=== PATIENT | male | born 1960 | race Caucasian/White ===

== ENCOUNTER 2021-03-24 20:58 | Inpatient (IN) ==
[2021-03-24] MEDS ORDERED: IOPAMIDOL 100 ML BOTTLE IV ONE (20:59)
[2021-03-24] MEDS ORDERED: cefTRIAXone 1 GM VIAL IV ONE (22:05)
[2021-03-24] MEDS ORDERED: IPRATROPIUM/ALBUTEROL 3 ML AMPUL.NEB NEB ONE (22:05)
[2021-03-24] MEDS ORDERED: methylPREDNISolone SOD SUCC 125 MG/2 ML VIAL IV ONE (22:05)
--- NOTE | 2021-03-24 22:11 | Emergency Department Note ---
SOB HPI General Chief Complaint: Shortness of Breath/Dyspnea Stated Complaint: shortness of breath Time Seen by Provider: 03/24/21 21:56 Source: EMS Mode of arrival: EMS Limitations: no limitations History of Present Illness HPI Narrative: Narrative: The patient presents to room T5 via EMS for evaluation of shortness of breath. Patient reports that he has had underlying COPD for several years. He does currently take oxygen at 3 L by nasal cannula. Over the last 3 weeks he has had progressive shortness of breath with intermittent fevers and shaking chills. He states 4 to 5 days ago he was seen in the clinic and started on antibiotics. He reports now that he is having worsening pain on the right lateral aspect of his chest which inhibits his ability to breathe. He also reports shortness of breath with cough. He denies any lower extremity swelling or calf pain. He denies any nausea or vomiting. No lightheadedness or dizziness. Related Data Allergies Allergy/AdvReac Type Severity Reaction Status Date / Time bupropion [From Wellbutrin] AdvReac Severe Irritable Verified 03/24/21 21:08 codeine AdvReac Severe Vomiting Verified 03/24/21 21:08 Penicillins AdvReac Intermediate Rash Verified 03/24/21 21:08 Review of Systems ROS ROS Narrative: Narrative: All systems ED: reviewed and negative except as stated. [facility] Narrative Patient History Narrative: Narrative: Medical/Surgical/Family History All Active Problems (Updated 03/25/21 @ 01:07 by Twin Wiggins MD) Acute exacerbation of chronic obstructive airways disease (Acute) Bilateral pneumonia (Acute) Hypoxia (Acute) Social History Smoking Status: Smokeless tobacco Exam Narrative Narrative: Narrative: General Limitations: no limitations General appearance: Present alert and in no apparent distress Head Head: Present atraumatic, normocephalic and normal inspection Eye Eye: Present normal appearance and EOMI; Absent conjunctival injection ENT ENT: Present normal exam and mucous membranes moist Neck Neck: Present normal inspection and trachea midline Chest Chest: Present tenderness (Tenderness to palpation on the lateral aspect of the right chest along the anterior axillary line.) Respiratory Respiratory: Present normal lung sounds bilaterally, rales/crackles and wheezes; Absent respiratory distress Cardiovascular Cardiovascular: Present regular rate, normal rhythm and normal heart sounds Adbominal Abdominal: Present soft; Absent distention, tenderness, guarding and rebound Extremities Extremities: Present normal inspection; Absent tenderness Back Back: Present normal inspection; Absent tenderness Neurological Neurological: Present alert, oriented X3 and CN II-XII intact; Absent motor sensory deficit Psychiatric Psychiatric: Present normal affect and normal mood Skin Skin: Present warm (WNL) and dry; Absent rash Course Vital Signs Vital signs: Vital Signs Pulse Rate 81 03/24/21 21:18 Blood Pressure 131/88 03/24/21 21:18 Pulse Oximetry (%) 91 03/24/21 21:18 Pulse Rate 78 03/25/21 00:13 Respiratory Rate 29 H 03/24/21 23:52 Blood Pressure 104/67 03/24/21 23:00 Pulse Oximetry (%) 92 03/25/21 00:32 [facility] MDM Narrative Medical decision making narrative: Narrative: Patient presents for evaluation of right-sided chest discomfort suggestive of pleuritic pain. The patient has been recently treated for pneumonia as an outpatient however is having increased oxygen requirement and worsening discomfort. The patient does have a leuk ocytosis. Electrolytes are otherwise unremarkable. Lactic acid level is normal. CT scan of the chest does show extensive bilateral pneumonia. The patient did receive IV antibiotics after blood cultures. The patient also received DuoNeb treatment and Solu-Medrol. The patient is having increased oxygen requirement and is a failure of outpatient treatment. I discussed the case with the hospitalist. We will be admitting to the medical floor. Lab Data Lab results reviewed: Yes I reviewed the patient's lab results. Result diagrams: 03/24/21 22:38 03/24/21 22:37 Labs: Lab Results 03/24/21 03/24/21 03/24/21 Range/Units 22:37 22:38 22:38 WBC 13.1 H (4.5-11.0) K/mcL RBC 4.30 L (4.50-5.90) M/mcL Hgb 12.5 L (13.5-16.5) g/dL Hct 36.9 L (41.0-55.0) % POC Hct 37 L (41-55) % MCV 85.8 (80.0-100.0) fL MCH 29.1 (26.0-34.0) pg MCHC 33.9 (31.0-36.0) g/dL RDW 13.8 (11.5-14.5) % Plt Count 246 (140-440) K/mcL MPV 9.8 (7.4-10.4) fL Neut % (Auto) 83.5 H (38.0-78.0) % Lymph % (Auto) 6.1 L (15.0-49.0) % [place] % (Auto) 10.2 (1.0-12.0) % Eos % (Auto) 0 (0.0-7.0) % Baso % (Auto) 0.2 (0.0-2.0) % Lymph # (Auto) 0.80 L (1.50-4.80) K/mcL [place] # (Auto) 1.34 H (0.10-0.90) K/mcL Eos # (Auto) 0 (0.00-0.70) K/mcL Baso # (Auto) 0.03 (0.00-0.20) K/mcL Absolute Neutrophils 10.93 H (1.80-8.00) K/mcL VBG Lactic Acid 1.0 (0.5-2.0) mmol/L POC Sodium 136 (133-145) mEq/L Sodium 134 (133-145) mmol/L POC Potassium 3.4 (3.3-5.1) mEql/L Potassium 3.6 (3.3-5.1) mmol/L POC Chloride 101 (96-108) mEq/L Chloride 99 (96-108) mmol/L Carbon Dioxide 21 L (22-30) mmol/L POC Total CO2 22 (22-30) mmol/L Anion Gap 14.0 (8.0-16.0) POC BUN 16 (6-20) mg/dL BUN 16 (6-20) mg/dL Creatinine 0.8 (0.7-1.2) mg/dL POC Creatinine 0.7 (0.6-1.2) mg/dL GFR Calculation 97 Glucose 103 (70-105) mg/dL POC Glucose 109 H (70-105) mg/dL Calcium 8.7 (8.6-10.4) mg/dL POC WB Ioniz Calcium 1.08 L (1.16-1.32) mmEq/L Total Bilirubin 0.5 (0.1-1.0) mg/dL AST 159 H (<40) U/L ALT 97 H (<40) U/L Alkaline Phosphatase 104 (39-117) U/L Troponin T (<0.03) ng/mL Total Protein 6.7 (5.9-8.4) gm/dL Albumin 3.0 L (3.2-5.2) gm/dL Globulin 3.7 (2.2-3.7) gm/dL Albumin/Globulin Ratio 0.8 L (1.0-2.3) 03/24/21 Range/Units 22:38 WBC (4.5-11.0) K/mcL RBC (4.50-5.90) M/mcL Hgb (13.5-16.5) g/dL Hct (41.0-55.0) % POC Hct (41-55) % MCV (80.0-100.0) fL MCH (26.0-34.0) pg MCHC (31.0-36.0) g/dL RDW (11.5-14.5) % Plt Count (140-440) K/mcL MPV (7.4-10.4) fL Neut % (Auto) (38.0-78.0) % Lymph % (Auto) (15.0-49.0) % [place] % (Auto) (1.0-12.0) % Eos % (Auto) (0.0-7.0) % Baso % (Auto) (0.0-2.0) % Lymph # (Auto) (1.50-4.80) K/mcL [place] # (Auto) (0.10-0.90) K/mcL Eos # (Auto) (0.00-0.70) K/mcL Baso # (Auto) (0.00-0.20) K/mcL Absolute Neutrophils (1.80-8.00) K/mcL VBG Lactic Acid (0.5-2.0) mmol/L POC Sodium (133-145) mEq/L Sodium (133-145) mmol/L POC Potassium (3.3-5.1) mEql/L Potassium (3.3-5.1) mmol/L POC Chloride (96-108) mEq/L Chloride (96-108) mmol/L Carbon Dioxide (22-30) mmol/L POC Total CO2 (22-30) mmol/L Anion Gap (8.0-16.0) POC BUN (6-20) mg/dL BUN (6-20) mg/dL Creatinine (0.7-1.2) mg/dL POC Creatinine (0.6-1.2) mg/dL GFR Calculation Glucose (70-105) mg/dL POC Glucose (70-105) mg/dL Calcium (8.6-10.4) mg/dL POC WB Ioniz Calcium (1.16-1.32) mmEq/L Total Bilirubin (0.1-1.0) mg/dL AST (<40) U/L ALT (<40) U/L Alkaline Phosphatase (39-117) U/L Troponin T < 0.01 (<0.03) ng/mL Total Protein (5.9-8.4) gm/dL Albumin (3.2-5.2) gm/dL Globulin (2.2-3.7) gm/dL Albumin/Globulin Ratio (1.0-2.3) Radiology Data Radiology results reviewed: Yes I reviewed the patient's radiology results. EKG Data EKG #1: EKG attestation: Yes I reviewed and interpreted this EKG., Yes There are no EKG findings of acute coronary syndrome and Yes This EKG will be read by hydraulic miner blasting EKG results narrative: Normal sinus rhythm, rate 80, normal ST segment, no ectopy, normal QRS Rhythm Strip Data Rhythm Strip Rate: 82 Interpretation: Normal sinus rhythm Pulse Oximetry Data Pulse Ox %: 92 Interpretation: 3 L, hypoxia corrected CC TIME Critical Care Time Critical Care Time: Yes Total Critical Care Time: 30 Attestation: Approximately 30 minutes of critical care time was used in order to assess and manage the high probability of imminent or life threatening deterioration which required my highest level of preparedness and interventions with frequent patient assessments. This time is excluding time spent on separately billable procedures. Discharge Plan Patient/Caregiver Discharge Instructions Pt seen by SENIOR SQL DEVELOPER/PA only: No Clinical Impression: Acute exacerbation of chronic obstructive airways disease, Bilateral pneumonia, Hypoxia Patient Disposition: Xfer As Inpt ([facility]) Condition: Undetermined Follow up with: Abby Cole ARNP [Primary Care Provider] -
[2021-03-24 22:48] LABS: POC Blood Urea Nitrogen 16 mg/dL (6-20); POC CO2 22 mmol/L (22-30); POC Calcium, Ionized 1.08 mmEq/L (1.16-1.32); POC Chloride 101 mEq/L (96-108); POC Creatinine 0.7 mg/dL (0.6-1.2); POC Glucose, Random 109 mg/dL (70-105); POC Hematocrit 37 % (41-55); POC Potassium 3.4 mEql/L (3.3-5.1); POC Sodium 136 mEq/L (133-145)
[2021-03-24 23:37] LABS: Basophils # (Auto) 0.03 K/mcL (0.00-0.20); Basophils % (Auto) 0.2 % (0.0-2.0); Eosinophils # (Auto) 0 K/mcL (0.00-0.70); Eosinophils % (Auto) 0 % (0.0-7.0); Hematocrit 36.9 % (41.0-55.0); Hemoglobin 12.5 g/dL (13.5-16.5); Lymphocytes % (Auto) 6.1 % (15.0-49.0); Mean Cell Volume 85.8 fL (80.0-100.0); Mean Corpuscular HGB Conc 33.9 g/dL (31.0-36.0); Mean Platelet Volume 9.8 fL (7.4-10.4); Monocytes # (Auto) 1.34 K/mcL (0.10-0.90); Monocytes % (Auto) 10.2 % (1.0-12.0); Neutrophils % (Auto) 83.5 % (38.0-78.0); Platelet Count 246 K/mcL (140-440); Red Cell Distribution Width 13.8 % (11.5-14.5); WBC 13.1 K/mcL (4.5-11.0)
[2021-03-24 23:54] LABS: ALT/SGPT 97 U/L (<40); AST/SGOT 159 U/L (<40); Albumin/Globulin Ratio 0.8 (1.0-2.3); Alkaline Phosphatase 104 U/L (39-117); Bilirubin,Total 0.5 mg/dL (0.1-1.0); Blood Urea Nitrogen 16 mg/dL (6-20); Calcium 8.7 mg/dL (8.6-10.4); Carbon Dioxide 21 mmol/L (22-30); Chloride 99 mmol/L (96-108); Globulin 3.7 gm/dL (2.2-3.7); Glomerular Filtration Rate 97; Glucose 103 mg/dL (70-105)
[2021-03-25] MEDS ORDERED: VANCOMYCIN 1,500 MG in 0.9 % SODIUM CHLORIDE 500 ML IV ONE (00:17)
[2021-03-25] MEDS ORDERED: PIPERACILLIN SODIUM/TAZOBACTAM 4.5 GM in DEXTROSE 5% IN WATER 50 ML IV ONE (00:17)
[2021-03-25] MEDS ORDERED: HYDROmorphone 1 MG/ML SYRINGE IV ONE ×2 (00:21→00:22)
[2021-03-25] MEDS ORDERED: IPRATROPIUM/ALBUTEROL 3 ML AMPUL.NEB NEB ONE (00:33)
[2021-03-25] MEDS ORDERED: IPRATROPIUM/ALBUTEROL 3 ML AMPUL.NEB NEB PRN ×3 (02:19→08:06)
[2021-03-25] MEDS ORDERED: ACETAMINOPHEN 325 MG TABLET PO PRN ×3 (02:20→08:10)
[2021-03-25] MEDS ORDERED: 0.9 % SODIUM CHLORIDE 1,000 ML IV SCH (02:30)
[2021-03-25] MEDS ORDERED: morphine 2 MG/ML VIAL IV PRN ×4 (04:07→08:06)
[2021-03-25] MEDS ORDERED: morphine 2 MG/ML VIAL ONE (04:14)
--- NOTE | 2021-03-25 05:48 | Cat Scan Report ---
INDICATION: chest pain, pna COMPARISON: Chest x-ray dated 03/12/2021 performed at an outside institution. TECHNIQUE: Axial images obtained through the chest. 60ml Isovue 370 injected intravenously, and scanning was performed during pulmonary arterial phase. Sagittally and coronally reformatted images were obtained. MIP reformatted images. FINDINGS: Examination was initially interpreted by [facility] Lungs:Bilateral pulmonary parenchymal infiltrates, right worse than left. These infiltrates are peripherally based. There is consolidation in the posterior segment of the right upper lobe as well as the posterior basilar segment of the right lower lobe. Findings are nonspecific but are consistent with pneumonia. Severe covid pneumonia could have this appearance Mediastinum, vascular:Main pulmonary artery, right pulmonary artery, left pulmonary artery are negative. No intraluminal filling defects. No lobar, segmental, or subsegmental abnormalities. Ascending thoracic aorta and aortic arch are negative. There is a prominent filling defect within the descending thoracic aorta. This measures approximately 17 x 14 x 11 mm. This abuts the posterior wall. Appearance is consistent with focal thrombus. Medical management may be necessary. Thoracic aorta is otherwise negative. No dissection. There is prominent right hilar adenopathy. This is probably reactive and physiologic. Mild mediastinal adenopathy is nonspecific. Heart:No cardiomegaly. No pericardial effusion. Pleura:No significant pleural effusion. No pleural mass or calcification Axilla, supraclavicular regions, chest wall:No pathologic axillary or supraclavicular adenopathy. Musculoskeletal:Negative thoracic spine. No compression fracture. No lytic lesion. No rib or sternal lesions Upper Abdomen:There is a small hiatal hernia. Upper abdomen is otherwise negative IMPRESSION: 1. Negative pulmonary CTA 2. Extensive infiltrate consistent with multilobar pneumonia, right and left. 3. Right hilar adenopathy 4. Prominent intraluminal filling defect within the descending thoracic aorta. Appearance is consistent with a polypoid thrombus adherent to the posterior wall of the descending thoracic aorta. Dimensions are given above 5. Small hiatal hernia The exam was performed using radiation dose optimization techniques including, but not limited to, automated exposure control, adjustment of the mA and/or kV according to patient size and use of iterative reconstruction technique. Interpreted and Authenticated by: Riley Self 03/25/21
[2021-03-25] MEDS ORDERED: HYDROcodone/APAP 10/325MG TABLET PO PRN (08:00)
[2021-03-25] MEDS ORDERED: guaiFENesin/DEXTROMETHORPHAN ORAL SOL PO PRN ×2 (08:02→08:06)
[2021-03-25] MEDS ORDERED: ONDANSETRON 4 MG/2 ML VIAL IV PRN (08:04)
[2021-03-25] MEDS ORDERED: CYCLOBENZAPRINE 10 MG TABLET PO PRN (08:06)
[2021-03-25] MEDS ORDERED: IBUPROFEN 600 MG TABLET PO PRN (08:06)
[2021-03-25] MEDS ORDERED: DEXTROSE 50% 50 ML VIAL IV PRN (08:13)
[2021-03-25] MEDS ORDERED: DEXTROSE 31 GM ORAL.SUSP PO PRN (08:13)
--- NOTE | 2021-03-25 08:26 | Internal Med History&Physical ---
HPI History of Present Illness Patient information: Note initiated : 03/25/21 at 8:14 am Service Date, if different from initiated Date: [] Patient: Travis Seo 60 y/o M admitted on 03/25/21 for shortness of breath. Chief Complaint: [shortness of breath] History of present illness: Mr. Seo is a 60 year old M history of COPD, dependent on home oxygen therapy, insulin-dependent type 2 diabetes mellitus, osteoarthritis of the left hip, presenting with 3-week history of gradual onset, gradually worsening shortness of breath. Patient denies any recent travel or sick contact. There is no prior similar episode. Over the past week, he has gradual onset, gradually worsening shortness of breath. He also has nonproductive cough and denies any sputum productions. He denies any respiratory wheezings. He also is coming a fever of up to 103. Denies any chills or sweating. About a week ago he presented to his doctor because of the symptoms mentioned and he was prescribed some antibiotics which he does not recall the name. He came back to our ED last night due to recurrence of the symptoms and due to the fact that he has an acute onset right lower lateral sharp chest pain whenever he coughs. Vital signs within normal limits. Labs significant for leukocytosis with WBC 13.1. Serum lactic acid 1.0. Covid screening negative. CT angiogram shows absence of any pulmonary embolus and instead showing bilateral pneumonia. Constitutional Constitutional: Absent chills, excessive sweating, fatigue, fever(s) and weakness EENT Eyes: Absent blurry vision, change in vision, loss of vision and other visual disturbances Ears: Absent decreased hearing and tinnitus Nose, mouth and throat: Absent abnormal hearing, dry mouth, headache(s), nasal congestion and sore throat Cardiovascular Cardiovascular: Absent chest pain, chest pain at rest, edema, irregular heart rhythm and palpatations Respiratory Respiratory: Present cough; Absent dyspnea and wheezing Additional comments: shortness of breath Gastrointestinal Gastrointestinal: Absent abdominal pain, constipation, diarrhea, nausea and vomiting Musculoskeletal Musculoskeletal: Absent back pain, deformity, limited range of motion, muscle cramps, muscle weakness and numbness Additional comments: right lower lateral chest pain Integumentary Integumentary: Absent lesions, rash and wounds Neurological Neurological: Absent focal weakness, headache(s) and numbness Psychiatric Psychiatric: Absent anxiety, depression and hallucinations PFSH PFSH All Active Problems (Updated 03/25/21 @ 08:20 by Gerson Guzman MD) On home oxygen therapy (Acute) Anemia, normocytic normochromic (Acute) T2DM (type 2 diabetes mellitus) (Acute) Acute and chronic respiratory failure (Acute) COPD (chronic obstructive pulmonary disease) (Acute) Acute exacerbation of chronic obstructive airways disease (Acute) Bilateral pneumonia (Acute) Hypoxia (Acute) MEDS/ALLERGIES Home Medications and Allergies Home Medications Medication Instructions Recorded Confirmed Type albuterol sulfate [ProAir HFA] 2 inh INHALATION PRN PRN 03/25/21 03/25/21 History atorvastatin 40 mg PO QHS 03/25/21 03/25/21 History carbamazepine 400 mg PO QHS 03/25/21 03/25/21 History carbamazepine 600 mg PO QAM 03/25/21 03/25/21 History hydrocodone-acetaminophen 1 - 2 tab PO Q4H PRN 03/25/21 03/25/21 History levofloxacin 750 mg PO DAILY 03/25/21 03/25/21 History metformin 500 mg PO BID 03/25/21 03/25/21 History tiotropium-olodaterol [Stiolto 1 puff INHALATION DAILY PRN 03/25/21 03/25/21 History Respimat] umeclidinium-vilanterol [Anoro 1 inh INHALATION QDAY PRN 03/25/21 03/25/21 History Ellipta] zolpidem [Ambien] 10 mg PO QHS 03/25/21 03/25/21 History Allergies Allergy/AdvReac Type Severity Reaction Status Date / Time Penicillins Allergy Mild Rash Verified 03/25/21 06:36 bupropion [From Wellbutrin] AdvReac Mild Irritable Verified 03/25/21 06:36 codeine AdvReac Mild Vomiting Verified 03/25/21 06:36 EXAM Constitutional Vitals: Temp Pulse Resp BP Pulse Ox 36.7 C 80 36 H 122/74 92 03/25/21 02:54 03/25/21 02:54 03/25/21 02:54 03/25/21 02:54 03/25/21 03:15 General appearance: cooperative and no acute distress Head Head exam: Present atraumatic and normocephalic Eye Eye exam: Present EOMI and PERRL ENT ENT exam: Present mucous membranes moist, normal exam and normal external ear exam Additional comments: Nasal cannula Neck Neck exam: Present normal inspection; Absent lymphadenopathy, tenderness and thyromegaly Respiratory Respiratory exam: Absent accessory muscle use, respiratory distress and wheezes Additional comments: Right lung base respiratory crackles Cardiovascular Cardiovascular exam: Present normal rate and rhythm; Absent JVD GI/Abdominal GI/Abdominal exam: Present normal bowel sounds and soft; Absent organomegaly and tenderness Rectal Rectal exam: Present deferred Extremities Exam Extremities exam: Present full ROM, normal capillary refill and normal inspection; Absent tenderness Neurological Exam Neurological exam: Present alert, CN II-XII intact and oriented X3; Absent motor sensory deficit Psychiatric Psychiatric exam: Present normal affect and normal mood; Absent anxious and depressed Skin Skin exam: Present dry and intact DATA Data Completed and Pending Labs: Labs from last 24 hours 03/24/21 03/24/21 03/24/21 22:38 22:38 22:38 WBC 13.1 H RBC 4.30 L Hgb 12.5 L Hct 36.9 L POC Hct MCV 85.8 MCH 29.1 MCHC 33.9 RDW 13.8 Plt Count 246 MPV 9.8 Neut % (Auto) 83.5 H Lymph % (Auto) 6.1 L [place] % (Auto) 10.2 Eos % (Auto) 0 Baso % (Auto) 0.2 Lymph # (Auto) 0.80 L [place] # (Auto) 1.34 H Eos # (Auto) 0 Baso # (Auto) 0.03 Absolute Neutrophils 10.93 H VBG Lactic Acid 1.0 POC Sodium Sodium POC Potassium Potassium POC Chloride Chloride Carbon Dioxide POC Total CO2 Anion Gap POC BUN BUN Creatinine POC Creatinine GFR Calculation Glucose POC Glucose Calcium POC WB Ioniz Calcium Total Bilirubin AST ALT Alkaline Phosphatase Troponin T < 0.01 Total Protein Albumin Globulin Albumin/Globulin Ratio 03/24/21 22:37 WBC RBC Hgb Hct POC Hct 37 L MCV MCH MCHC RDW Plt Count MPV Neut % (Auto) Lymph % (Auto) [place] % (Auto) Eos % (Auto) Baso % (Auto) Lymph # (Auto) [place] # (Auto) Eos # (Auto) Baso # (Auto) Absolute Neutrophils VBG Lactic Acid POC Sodium 136 Sodium 134 POC Potassium 3.4 Potassium 3.6 POC Chloride 101 Chloride 99 Carbon Dioxide 21 L POC Total CO2 22 Anion Gap 14.0 POC BUN 16 BUN 16 Creatinine 0.8 POC Creatinine 0.7 GFR Calculation 97 Glucose 103 POC Glucose 109 H Calcium 8.7 POC WB Ioniz Calcium 1.08 L Total Bilirubin 0.5 AST 159 H ALT 97 H Alkaline Phosphatase 104 Troponin T Total Protein 6.7 Albumin 3.0 L Globulin 3.7 Albumin/Globulin Ratio 0.8 L A/P Assessment and plan (1) Bilateral pneumonia: Status: Acute (2) COPD (chronic obstructive pulmonary disease): Status: Acute (3) Acute and chronic respiratory failure: Status: Acute (4) T2DM (type 2 diabetes mellitus): Status: Acute (5) Anemia, normocytic normochromic: Status: Acute (6) On home oxygen therapy: Status: Acute Narrative A/P Narrative: 1. Community acquire pneumonia: Admit to inpatient med surg Blood culture Sputum culture Rocephin Zithromax Supplemental oxygen titrate to achieve spo2 >92% Robitussin DM PRN cough Flexeril PRN muscle spasm Ibuprofen PRN mild pain [place] PRN moderate pain Morphine IV PRN severe pain Tylenol PRN fever cbc w/ auto diff in the morning to trend WBC 2. h/o COPD: Does not appear to be in exacerbation clinically DuoNEB NEB PRN wheezing or SOB Supplemental oxygen titrate to achieve spo2 >92% 3. T2DM: HgA1c Hold Metformin Tier 1 SSI AC HS Accu Chek AC HS Hypoglycemia protocol Diabetic diet 4. Anemia, normocytic normochromic: cbc w/ auto diff in the AM to trend H/H; transfuse pRBC if hemoglobin <7.0, active bleeding, or symptomatic GI ppx: not currently indicated DVT ppx: Lovenox Code status: DNI DNR Prognosis: guarded Disposition: inpatient med surg Time Spent With Patient Time: Total time spent is greater than 50% in coordination of care (as documented) at patient's floor/unit and/or counseling patient: Total time spent with greater than 50% in coordination of care (as documented) at patient's floor/unit and/or counseling patient:: 25 - 35 minutes QUALITY VTE Deep Vein Thrombosis/Pulmonary Embolism Present on Admission: No
[2021-03-25] MEDS ORDERED: carBAMazepine 200 MG TABLET PO SCH ×2 (09:00→21:00)
[2021-03-25] MEDS: 0.9 % SODIUM CHLORIDE 1,000 ML IV SCH ×3 (09:11→18:55)
[2021-03-25] MEDS: DOCUSATE SODIUM 100 MG CAPSULE PO SCH ×3 (09:22→20:40)
[2021-03-25] MEDS: carBAMazepine 200 MG TABLET PO SCH ×2 (09:23→20:40)
[2021-03-25] MEDS: ENOXAPARIN 30 MG/0.3 ML SYRINGE SQ SCH ×2 (09:23→09:27)
[2021-03-25] MEDS: AZITHROMYCIN 500 MG in DEXTROSE 5% IN WATER 250 ML IV SCH (09:24)
[2021-03-25] MEDS: cefTRIAXone 1 GM VIAL IV SCH (09:30)
[2021-03-25] MEDS: HYDROcodone/APAP 10/325MG TABLET PO PRN ×3 (09:38→19:36)
[2021-03-25] MEDS: INSULIN LISPRO 1 UNIT/0.01 ML UNIT SQ SCH ×3 (12:00→20:45)
[2021-03-25] MEDS: 0.9 % SODIUM CHLORIDE 10 ML SYRINGE IV SCH ×2 (13:53→20:46)
--- NOTE | 2021-03-25 16:09 | EKG ---
[facility] Test Date: 2021-03-24 Pat Name: Travis Seo Department: ED Room: Gender: Male Puffer Tender: : 1960 Requested By: Twin Wiggins Order Number: [id number] Reading MD: Javier Herrera M.D. Measurements Intervals [place] Rate: 80 P: 41 [place]: 204 QRS: 26 QRSD: 81 T: 63 QT: 365 QTc: 421 Interpretive Statements Sinus rhythm Borderline prolonged [place] interval Electronically Signed On 03-25-2021 16:08:47 PDT by Javier Herrera M.D. /[id number]/[id number]
[2021-03-25] MEDS: ATORVASTATIN 40 MG TABLET PO SCH (20:40)
[2021-03-25] MEDS: SENNOSIDES 1 TABLET PO SCH (20:42)
[2021-03-25] MEDS ORDERED: ATORVASTATIN 40 MG TABLET PO SCH (21:00)
[2021-03-25] MEDS: ZOLPIDEM 5 MG TABLET PO PRN (23:09)
[2021-03-26] MEDS: 0.9 % SODIUM CHLORIDE 10 ML SYRINGE IV SCH ×3 (04:05→20:46)
[2021-03-26] MEDS: 0.9 % SODIUM CHLORIDE 1,000 ML IV SCH ×2 (04:05→08:06)
[2021-03-26] MEDS: HYDROcodone/APAP 10/325MG TABLET PO PRN ×4 (05:04→20:45)
[2021-03-26 06:45] LABS: Basophils # (Auto) 0.05 K/mcL (0.00-0.20); Basophils % (Auto) 0.6 % (0.0-2.0); Eosinophils # (Auto) 0 K/mcL (0.00-0.70); Eosinophils % (Auto) 0 % (0.0-7.0); Hematocrit 35.9 % (41.0-55.0); Hemoglobin 11.6 g/dL (13.5-16.5); Lymphocytes # (Auto) 0.89 K/mcL (1.50-4.80); Lymphocytes % (Auto) 11.3 % (15.0-49.0); Mean Cell Volume 88.2 fL (80.0-100.0); Mean Corpuscular HGB Conc 32.3 g/dL (31.0-36.0); Monocytes # (Auto) 1.02 K/mcL (0.10-0.90); Monocytes % (Auto) 12.9 % (1.0-12.0); Neutrophils % (Auto) 75.2 % (38.0-78.0); Platelet Count 264 K/mcL (140-440); RBC 4.07 M/mcL (4.50-5.90); Red Cell Distribution Width 14.1 % (11.5-14.5); WBC 7.9 K/mcL (4.5-11.0)
[2021-03-26 07:11] LABS: ALT/SGPT 86 U/L (<40); AST/SGOT 120 U/L (<40); Alkaline Phosphatase 81 U/L (39-117); Bilirubin,Total 0.2 mg/dL (0.1-1.0); Blood Urea Nitrogen 12 mg/dL (6-20); Calcium 8.2 mg/dL (8.6-10.4); Carbon Dioxide 25 mmol/L (22-30); Chloride 105 mmol/L (96-108); Glomerular Filtration Rate 102; Glucose 89 mg/dL (70-105)
[2021-03-26] MEDS: INSULIN LISPRO 1 UNIT/0.01 ML UNIT SQ SCH ×4 (07:57→20:46)
[2021-03-26] MEDS: cefTRIAXone 1 GM VIAL IV SCH (07:57)
[2021-03-26] MEDS: ENOXAPARIN 30 MG/0.3 ML SYRINGE SQ SCH (07:57)
[2021-03-26] MEDS: carBAMazepine 200 MG TABLET PO SCH ×2 (07:58→20:45)
[2021-03-26] MEDS: AZITHROMYCIN 500 MG in DEXTROSE 5% IN WATER 250 ML IV SCH (07:58)
[2021-03-26] MEDS: DOCUSATE SODIUM 100 MG CAPSULE PO SCH ×2 (08:32→20:44)
--- NOTE | 2021-03-26 11:40 | Internal Med Progress Note ---
SUBJECTIVE Subjective Patient information: Note initiated : 03/26/21 at 11:38 am Service Date, if different from initiated Date: [] Patient: Travis Seo 60 y/o M admitted on 03/25/21 for shortness of breath. Chief Complaint: [shortness of breath] History of present illness: Mr. Seo is a 60 year old M history of COPD, dependent on home oxygen therapy, insulin-dependent type 2 diabetes mellitus, osteoarthritis of the left hip, presenting with 3-week history of gradual onset, gradually worsening shortness of breath. Patient denies any recent travel or sick contact. There is no prior similar episode. Over the past week, he has gradual onset, gradually worsening shortness of breath. He also has nonproductive cough and denies any sputum productions. He denies any respiratory wheezings. He also is coming a fever of up to 103. Denies any chills or sweating. About a week ago he presented to his doctor because of the symptoms mentioned and he was prescribed some antibiotics which he does not recall the name. He came back to our ED last night due to recurrence of the sy mptoms and due to the fact that he has an acute onset right lower lateral sharp chest pain whenever he coughs. Vital signs within normal limits. Labs significant for leukocytosis with WBC 13.1. Serum lactic acid 1.0. Covid screening negative. CT angiogram shows absence of any pulmonary embolus and instead showing bilateral pneumonia. 03/26: Afebrile. On 3L oxygen. Blood culture no growth to date. c/o shortness of breath. c/o productive cough with white sputum. c/o wheezing. c/o right sided c hest wall pain when taking a deep breath. c/o general body weakness. c/o subjective fever. c/o constipation. Constitutional Vitals: Vital Signs Temp Pulse Resp BP Pulse Ox 36.9 C 60 20 121/79 94 03/26/21 07:52 03/26/21 07:52 03/26/21 07:52 03/26/21 07:52 03/26/21 08:00 Period Temp Pulse Resp BP Sys/Smith Pulse Ox Last 24 Hr 36.1 C-36.9 C 55-70 20-24 95-126/54-79 91-97 Intake and Output 03/25/21 03/26/21 03/26/21 21:59 05:59 13:59 Intake Total 2500 1600 1050 Output Total 875 2725 200 Balance 1625 -1125 850 Weight 92.76 kg Intake & Output: Intake & Output 03/25/21 03/26/21 03/26/21 21:59 05:59 13:59 Intake Total 2500 1600 1050 Output Total 875 2725 200 Balance 1625 -1125 850 Weight 92.76 kg Intake: IV 1000 250 Sodium Chloride 0.9% 1,000 ml @ 1000 125 mls/hr IV .Q8H [facility]ON[facility] Rx#: [id number] Zithromax 500 mg In Dextrose 5% 250 in Water 250 ml @ 250 mls/hr IV Q24H [facility] Rx#:[id number] Oral 2500 600 800 Output: Void Amount 875 2725 200 Other: Urine Appearance Clear Urine Color Bright Yellow General appearance: cooperative and no acute distress Head Head exam: Present atraumatic and normocephalic Eye Eye exam: Present EOMI and PERRL ENT ENT exam: Present mucous membranes moist, normal exam and normal external ear exam Additional comments: Nasal cannula in place Neck Neck exam: Present normal inspection; Absent lymphadenopathy, tenderness and thyromegaly Respiratory Respiratory exam: Absent accessory muscle use, respiratory distress and wheezes Additional comments: Respiratory crackles best heard in bilateral lung bases Cardiovascular Cardiovascular exam: Present normal rate and rhythm; Absent JVD GI/Abdominal GI/Abdominal exam: Present normal bowel sounds and soft; Absent organomegaly and tenderness Rectal Rectal exam: Present deferred Extremities Exam Extremities exam: Present full ROM, normal capillary refill and normal inspection; Absent tenderness Neurological Exam Neurological exam: Present alert, CN II-XII intact and oriented X3; Absent motor sensory deficit Psychiatric Psychiatric exam: Present normal affect and normal mood; Absent anxious and depressed Skin Skin exam: Present dry and intact OBJ DATA Labs CBC & Chem 7: 03/26/21 05:19 03/26/21 05:19 Labs: Abnormal Lab Results 03/26/21 03/26/21 03/24/21 05:19 05:19 22:38 WBC 13.1 H RBC 4.07 L 4.30 L Hgb 11.6 L 12.5 L Hct 35.9 L 36.9 L POC Hct Neut % (Auto) 83.5 H Lymph % (Auto) 11.3 L 6.1 L [place] % (Auto) 12.9 H Lymph # (Auto) 0.89 L 0.80 L [place] # (Auto) 1.02 H 1.34 H Absolute Neutrophils 10.93 H Carbon Dioxide Anion Gap 7.0 L POC Glucose Calcium 8.2 L POC WB Ioniz Calcium AST 120 H ALT 86 H Albumin 3.0 L Albumin/Globulin Ratio 03/24/21 22:37 WBC RBC Hgb Hct POC Hct 37 L Neut % (Auto) Lymph % (Auto) [place] % (Auto) Lymph # (Auto) [place] # (Auto) Absolute Neutrophils Carbon Dioxide 21 L Anion Gap POC Glucose 109 H Calcium POC WB Ioniz Calcium 1.08 L AST 159 H ALT 97 H Albumin 3.0 L Albumin/Globulin Ratio 0.8 L Meds: Medications Acetaminophen (Acetaminophen 325 Mg Tablet) 650 mg PO Q6HP PRN; Protocol PRN Reason: Per Pain Protocol Acetaminophen (Acetaminophen 325 Mg Tablet) 650 mg PO Q6HP PRN; Protocol PRN Reason: Per Pain Protocol/Fever > 101 Hydrocodone Bitart/Acetaminophen (Hydrocodone/Apap 10/325mg Tablet) 1 - 2 tab PO Q4H PRN; Protocol PRN Reason: Pain Last Admin: 03/26/21 05:04 Dose: 1 tab Documented by: Albuterol/Ipratropium (Ipratropium/Albuterol 3 Ml Ampul.Neb) 3 ml NEB Q4HP PRN PRN Reason: Shortness Of Breath Atorvastatin Calcium (Atorvastatin 40 Mg Tablet) 40 mg PO QHS [facility] Last Admin: 03/25/21 20:40 Dose: 40 mg Documented by: Carbamazepine (Carbamazepine 200 Mg Tablet) 400 mg PO QHS [facility] Last Admin: 03/25/21 20:40 Dose: 400 mg Documented by: Carbamazepine (Carbamazepine 200 Mg Tablet) 600 mg PO QAM [facility] Last Admin: 03/26/21 07:58 Dose: 600 mg Documented by: Ceftriaxone Sodium (Ceftriaxone 1 Gm Vial) 1 gm IV Q24H [facility]; Protocol Last Admin: 03/26/21 07:57 Dose: 1 gm Documented by: Cyclobenzaprine HCl (Cyclobenzaprine 10 Mg Tablet) 10 mg PO TID PRN PRN Reason: Muscle Spasm Dextrose (Dextrose 50% 50 Ml Vial) 0 ml IV UD PRN PRN Reason: Hypoglycemia Diagnostic Test (Pha) (Accu-Chek 1 Each Strip) 1 each FS ACHS [facility] Last Admin: 03/26/21 07:57 Dose: 1 each Documented by: Docusate Sodium (Docusate Sodium 100 Mg Capsule) 100 mg PO BID [facility] Last Admin: 03/26/21 08:32 Dose: 100 mg Documented by: Enoxaparin Sodium (Enoxaparin 30 Mg/0.3 Ml Syringe) 30 mg SQ DAILY [facility] Last Admin: 03/26/21 07:57 Dose: Not Given Documented by: Glucose (Dextrose 31 Gm Oral.Susp) 15 gm PO PRN PRN PRN Reason: Hypoglycemia Guaifenesin (Guaifenesin/Dextromethorphan Oral [place]isa) 10 ml PO Q4HP PRN PRN Reason: Cough Sodium Chloride (Sodium Chloride 0.9%) 1,000 mls @ 125 mls/hr IV .Q8H [facility] Last Admin: 03/26/21 08:06 Dose: Not Given Documented by: Azithromycin 500 mg/ Dextrose 250 mls @ 250 mls/hr IV Q24H [facility]; Protocol Stop: 03/27/21 09:59 Last Infusion: 03/26/21 08:52 Dose: Infused Documented by: Ibuprofen (Ibuprofen 600 Mg Tablet) 600 mg PO QIDP PRN; Protocol PRN Reason: PAIN/FEVER > 101 Insulin Human Lispro (Insulin Lispro 1 Unit/0.01 Ml Unit) 0 unit SQ [facility]; Protocol Last Admin: 03/26/21 07:57 Dose: Not Given Documented by: Morphine Sulfate (Morphine 2 Mg/Ml Vial) 2 mg IV Q4HP PRN; Protocol PRN Reason: Per Pain Protocol Last Admin: 03/26/21 08:04 Dose: 2 mg Documented by: Ondansetron HCl (Ondansetron 4 Mg/2 Ml Vial) 4 mg IV Q6HP PRN PRN Reason: Nausea And Vomiting Senna (Sennosides 1 Tablet) 2 tab PO HS [facility] Last Admin: 03/25/21 20:42 Dose: Not Given Documented by: Sodium Chloride (0.9 % Sodium Chloride 10 Ml Syringe) 10 ml IV Q8 [facility] Last Admin: 03/26/21 04:05 Dose: Not Given Documented by: Zolpidem Tartrate (Zolpidem 5 Mg Tablet) 5 mg PO HSP PRN PRN Reason: Insomnia Last Admin: 03/25/21 23:09 Dose: 5 mg Documented by: A/P Assessment and plan (1) Bilateral pneumonia: Status: Acute (2) COPD (chronic obstructive pulmonary disease): Status: Acute (3) Acute and chronic respiratory failure: Status: Acute (4) T2DM (type 2 diabetes mellitus): Status: Acute (5) Anemia, normocytic normochromic: Status: Acute (6) On home oxygen therapy: Status: Acute Narrative A/P Narrative: 1. Community acquire pneumonia: Stays in inpatient med surg Blood culture, no growth to date Sputum culture, no growth to date Rocephin Zithromax Supplemental oxygen titrate to achieve spo2 >92% Robitussin DM PRN cough Flexeril PRN muscle spasm Ibuprofen PRN mild pain [place] PRN moderate pain Morphine IV PRN severe pain Tylenol PRN fever cbc w/ auto diff in the morning to trend WBC 2. h/o COPD: Does not appear to be in exacerbation clinically DuoNEB NEB PRN wheezing or SOB Supplemental oxygen titrate to achieve spo2 >92% 3. T2DM: HgA1c Hold Metformin Tier 1 SSI AC HS Accu Chek AC HS Hypoglycemia protocol Diabetic diet 4. Anemia, normocytic normochromic: cbc w/ auto diff in the AM to trend H/H; transfuse pRBC if hemoglobin <7.0, active bleeding, or symptomatic GI ppx: not currently indicated DVT ppx: Lovenox Code status: DNI DNR Prognosis: stable Disposition: inpatient med surg Time Spent With Patient Time: Total time spent is greater than 50% in coordination of care (as documented) at patient's floor/unit and/or counseling patient: QUALITY VTE Deep Vein Thrombosis/Pulmonary Embolism Present on Admission: No
[2021-03-26] MEDS: POLYETHYLENE GLYCOL 3350 17 GM PACKET PO PRN (18:50)
[2021-03-26] MEDS: SENNOSIDES 1 TABLET PO SCH (20:45)
[2021-03-26] MEDS: ATORVASTATIN 40 MG TABLET PO SCH (20:45)
[2021-03-26] MEDS: ZOLPIDEM 5 MG TABLET PO PRN (22:54)
[2021-03-27] MEDS: HYDROcodone/APAP 10/325MG TABLET PO PRN ×5 (00:15→16:54)
[2021-03-27] MEDS: 0.9 % SODIUM CHLORIDE 10 ML SYRINGE IV SCH ×3 (03:46→14:52)
[2021-03-27 07:34] LABS: Basophils # (Auto) 0.04 K/mcL (0.00-0.20); Basophils % (Auto) 0.6 % (0.0-2.0); Eosinophils # (Auto) 0.21 K/mcL (0.00-0.70); Eosinophils % (Auto) 3.1 % (0.0-7.0); Hematocrit 32.8 % (41.0-55.0); Hemoglobin 10.9 g/dL (13.5-16.5); Lymphocytes % (Auto) 14.6 % (15.0-49.0); Mean Cell Volume 86.5 fL (80.0-100.0); Mean Corpuscular HGB Conc 33.2 g/dL (31.0-36.0); Mean Platelet Volume 9.8 fL (7.4-10.4); Monocytes # (Auto) 0.95 K/mcL (0.10-0.90); Monocytes % (Auto) 13.8 % (1.0-12.0); Neutrophils % (Auto) 67.9 % (38.0-78.0); Platelet Count 274 K/mcL (140-440); RBC 3.79 M/mcL (4.50-5.90); Red Cell Distribution Width 13.9 % (11.5-14.5); WBC 6.9 K/mcL (4.5-11.0)
[2021-03-27] MEDS: INSULIN LISPRO 1 UNIT/0.01 ML UNIT SQ SCH ×3 (07:55→17:09)
[2021-03-27 08:10] LABS: ALT/SGPT 65 U/L (<40); AST/SGOT 81 U/L (<40); Albumin/Globulin Ratio 1.1 (1.0-2.3); Alkaline Phosphatase 78 U/L (39-117); Bilirubin,Total 0.2 mg/dL (0.1-1.0); Blood Urea Nitrogen 10 mg/dL (6-20); Calcium 8.2 mg/dL (8.6-10.4); Carbon Dioxide 27 mmol/L (22-30); Chloride 107 mmol/L (96-108); Globulin 2.7 gm/dL (2.2-3.7); Glomerular Filtration Rate 109; Glucose 84 mg/dL (70-105)
[2021-03-27] MEDS: DOCUSATE SODIUM 100 MG CAPSULE PO SCH (09:10)
[2021-03-27] MEDS: carBAMazepine 200 MG TABLET PO SCH (09:11)
[2021-03-27] MEDS: cefTRIAXone 1 GM VIAL IV SCH (09:14)
[2021-03-27] MEDS: AZITHROMYCIN 500 MG in DEXTROSE 5% IN WATER 250 ML IV SCH (09:19)
[2021-03-27] MEDS: POLYETHYLENE GLYCOL 3350 17 GM PACKET PO PRN (09:27)
[2021-03-27] MEDS: ENOXAPARIN 30 MG/0.3 ML SYRINGE SQ SCH (09:29)
[2021-03-27] MEDS ORDERED: BISACODYL 10 MG SUPP.RECT PR ONE (10:30)
--- NOTE | 2021-03-27 10:56 | Discharge Summary ---
Discharge Provider Provider Patient information: Note initiated : 03/27/21 at 10:52 am Service Date, if different from initiated Date: [] Patient: Travis Seo 60 y/o M admitted on 03/25/21 for shortness of breath. Chief Complaint: [shortness of breath] History of present illness: Mr. Seo is a 60 year old M history of COPD, dependent on home oxygen therapy, insulin-dependent type 2 diabetes mellitus, osteoarthritis of the left hip, presenting with 3-week history of gradual onset, gradually worsening shortness of breath. Patient denies any recent travel or sick contact. There is no prior similar episode. Over the past week, he has gradual onset, gradually worsening shortness of breath. He also has nonproductive cough and denies any sputum productions. He denies any respiratory wheezings. He also is coming a fever of up to 103. Denies any chills or sweating. About a week ago he presented to his doctor because of the symptoms mentioned and he was prescribed some antibiotics which he does not recall the name. He came back to our ED last night due to recurrence of the symptoms and due to the fact that he has an acute onset right lower lateral sharp chest pain whenever he coughs. Vital signs within normal limits. Labs significant for leukocytosis with WBC 13.1. Serum lactic acid 1.0. Covid screening negative. CT angiogram shows absence of any pulmonary embolus and instead showing bilateral pneumonia. 03/26: Afebrile. On 3L oxygen. Blood culture no growth to date. c/o shortness of breath. c/o productive cough with white sputum. c/o wheezing. c/o right sided chest wall pain when taking a deep breath. c/o general body weakness. c/o subjective fever. c/o constipation. Date of admission: 03/25/21 02:46 Discharge date: 03/27/21 Primary care physician: Abby Cole Consults: 03/25/21 Consult to Physician [CONS] Stat Comment: Consulting Provider: Gerson Guzman Reason For Exam: Physician to Consult Discharge Meds Discharge Medications Home Medications Anoro Ellipta 1 inh INHALATION QDAY PRN 03/25/21 [History Confirmed 03/25/21 Last Taken 03/24/21 09:00] Stiolto Respimat 1 puff INHALATION DAILY PRN 03/25/21 [History Confirmed 03/25/21 Last Taken Unknown] albuterol sulfate [ProAir HFA] 2 inh INHALATION PRN PRN 03/25/21 [History Confirmed 03/25/21 Last Taken Unknown] atorvastatin 40 mg PO QHS 03/25/21 [History Confirmed 03/25/21 Last Taken 03/23/21 22:00] carbamazepine 400 mg PO QHS 03/25/21 [History Confirmed 03/25/21 Last Taken 03/23/21 22:00] carbamazepine 600 mg PO QAM 03/25/21 [History Confirmed 03/25/21 Last Taken 03/24/21 09:00] hydrocodone-acetaminophen 1 - 2 tab PO Q4H PRN 03/25/21 [History Confirmed 03/25/21 Last Taken 03/24/21 18:00] metformin 500 mg PO BID 03/25/21 [History Confirmed 03/25/21 Last Taken 03/24/21 09:00] zolpidem [Ambien] 10 mg PO QHS 03/25/21 [History Confirmed 03/25/21 Last Taken 03/23/21 22:00] cyclobenzaprine 10 mg PO TID PRN #10 tab 03/27/21 [Rx Last Taken Unknown] dextromethorphan-guaifenesin [Robafen DM Cough-Chest Congest] 10 ml PO Q4HP PRN #237 ml 03/27/21 [Rx Last Taken Unknown] levofloxacin 750 mg PO DAILY #4 tab 03/27/21 [Rx Last Taken Unknown] COURSE Hospital Course Hospital course: Patient was admitted on 03/25/21 for community acquired pneumonia. After blood cultures were collected, he was started on Rocephin, Zithromax, IV fluid, and supplemental oxygen. Blood cultures had been no growth to date. By 03/27, his oxygen requirement had been back to his baseline, any leukocytosis resolved, and he otherwise reached clinical stability. As such, the decision was made to discharge him back home with Rx Levaquin X4 additional days sent to pharmacy. 2 week PCP follow up appointment made for him. All questions answered prior to patient being physically discharged. Discharge diagnosis: community acquired pneumonia Time Spent with Patient Time attestation: Total time spent providing and/or coordinating discharge services: Patient was admitted on 03/25/21 for community acquired pneumonia. After blood cultures were collected, he was started on Rocephin, Zithromax, IV fluid, and supplemental oxygen. Blood cultures had been no growth to date. By 03/27, his oxygen requirement had been back to his baseline, any leukocytosis resolved, and he otherwise reached clinical stability. As such, the decision was made to discharge him back home with Rx Levaquin X4 additional days sent to pharmacy. 2 week PCP follow up appointment made for him. All questions answered prior to patient being physically discharged. EXAM Constitutional Vitals: Temp Pulse Resp BP Pulse Ox 36.9 C 62 20 129/78 90 03/27/21 06:45 03/27/21 06:45 03/27/21 06:45 03/27/21 06:45 03/27/21 06:45 General appearance: cooperative and no acute distress Head Head exam: Present atraumatic and normocephalic Eye Eye exam: Present EOMI and PERRL ENT ENT exam: Present mucous membranes moist, normal exam and normal external ear exam Additional comments: Nasal cannula in place Neck Neck exam: Present normal inspection; Absent lymphadenopathy, tenderness and thyromegaly Respiratory Respiratory exam: Present wheezes; Absent accessory muscle use and respiratory distress Cardiovascular Cardiovascular exam: Present normal rate and rhythm; Absent JVD GI/Abdominal GI/Abdominal exam: Present normal bowel sounds and soft; Absent organomegaly and tenderness Rectal Rectal exam: Present deferred Extremities Exam Extremities exam: Present full ROM, normal capillary refill and normal inspe ction; Absent tenderness Neurological Exam Neurological exam: Present alert, CN II-XII intact and oriented X3; Absent motor sensory deficit Psychiatric Psychiatric exam: Present normal affect and normal mood; Absent anxious and depressed Skin Skin exam: Present dry and intact Discharge Data Data Completed and Pending Labs on day of discharge: Labs from last 24 hours 03/27/21 03/27/21 05:49 05:49 WBC 6.9 RBC 3.79 L Hgb 10.9 L Hct 32.8 L MCV 86.5 MCH 28.8 MCHC 33.2 RDW 13.9 Plt Count 274 MPV 9.8 Neut % (Auto) 67.9 Lymph % (Auto) 14.6 L [place] % (Auto) 13.8 H Eos % (Auto) 3.1 Baso % (Auto) 0.6 Lymph # (Auto) 1.00 L [place] # (Auto) 0.95 H Eos # (Auto) 0.21 Baso # (Auto) 0.04 Absolute Neutrophils 4.66 Sodium 142 Potassium 4.2 Chloride 107 Carbon Dioxide 27 Anion Gap 8.0 BUN 10 Creatinine 0.6 L GFR Calculation 109 Glucose 84 Calcium 8.2 L Total Bilirubin 0.2 AST 81 H ALT 65 H Alkaline Phosphatase 78 Total Protein 5.7 L Albumin 3.0 L Globulin 2.7 Albumin/Globulin Ratio 1.1 Preliminary micro results at discharge 03/24/21 22:35 Blood Culture - Preliminary Blood 03/24/21 22:35 Blood Culture - Preliminary Blood Discharge Plan Patient/Caregiver Discharge Instructions Activity: increase activity as tolerated Diet: Consistent Carbohydrate Prescriptions: New cyclobenzaprine 10 mg Tablet 10 mg PO TID PRN (Reason: Muscle Spasm) Qty: 10 RF: 0 dextromethorphan-guaifenesin [Robafen DM Cough-Chest Congest] 10-100 mg/5 mL Syrup 10 ml PO Q4HP PRN (Reason: Cough) Qty: 237 RF: 0 Continued atorvastatin 40 mg Tablet 40 mg PO QHS RF: 0 hydrocodone-acetaminophen 10-325 mg Tablet 1 - 2 tab PO Q4H PRN (Reason: Pain) RF: 0 carbamazepine 200 mg Tablet 600 mg PO QAM RF: 0 carbamazepine 200 mg Tablet 400 mg PO QHS RF: 0 zolpidem [Ambien] 10 mg Tablet 10 mg PO QHS RF: 0 albuterol sulfate [ProAir HFA] 90 mcg/actuation HFA aerosol inhaler 2 inh INHALATION PRN PRN (Reason: Shortness Of Breath) RF: 0 metformin 500 mg tablet extended release 24 hr 500 mg PO BID RF: 0 Anoro Ellipta 62.5-25 mcg/actuation Blister With Device 1 inh INHALATION QDAY PRN (Reason: Shortness Of Breath) RF: 0 Stiolto Respimat 2.5-2.5 mcg/actuation mist 1 puff INHALATION DAILY PRN (Reason: Shortness Of Breath) RF: 0 levofloxacin 750 mg tablet 750 mg PO DAILY Qty: 4 RF: 0 Follow Up Plan Follow up with: Abby Cole ARNP [Primary Care Provider] - Patient Disposition: Home, Self-Care Prognosis: Undetermined Rehab Potential: Good Overall status at discharge: patient is progressing back to baseline Discharge Orders: Discharge Order (Routine); Ordered 03/27/21 Ordered By: Gerson SONG VTE Deep Vein Thrombosis/Pulmonary Embolism Present on Admission: No
== END 2021-03-27 17:00 | disposition home or self-care (01) | DRG 190 ==
LOC: ED 20:58 → MEDSUR 03-25 02:46
PROVIDERS: ADMIT Internal Medicine; ATTEND Internal Medicine